=== PATIENT | male | born 1975 | race Caucasian/White ===

== ENCOUNTER 2023-08-29 22:41 | Emergency (ER) | payer SELFPAY ==
[2023-08-29 22:44] VITALS: BP 117/71; PULSE 62; RESP 20; TEMP 36.4; O2SAT 100
== END 2023-08-29 23:53 | disposition left against medical advice (07) ==
LOC: ANHED 23:47
PROVIDERS: PCP Physician Assistant
DX: S61.210A Laceration without foreign body of right index finger without damage to nail, initial encounter (principal); W45.8XXA Other foreign body or object entering through skin, initial encounter
CPT/HCPCS: 99199

== ENCOUNTER 2023-08-30 10:15 | Emergency (ER) | payer MEDICAID, SELFPAY ==
--- NOTE | ~2023-08-30 | XR_ITS ---
EXAMINATION: XR finger 2nd RT min 2V DATE: 08/30/2023 10:35 INDICATION: Right hand second digit injury. TECHNIQUE: 4 views of right hand second digit were obtained. COMPARISON: None. FINDINGS: There is a laceration of distal second digit. There is an oblique fracture of tuft of secon d distal phalanx. The distal fracture fragment demonstrates 2 mm palmar displacement. Joint spaces ar e normal. IMPRESSION: 1. Oblique fracture of tuft of second distal phalanx. Reviewed, dictated and finalized at location E.
--- NOTE | 2023-08-30 10:20 | ED.EXTPRO ---
HPI - Extremity Problem General Chief complaint: Wound/Laceration Stated complaint: Pointer Finger RT Hand Injury Time Seen by Provider: 08/30/23 10:18 Source: patient Mode of arrival: ambulatory Limitations: no limitations History of Present Illness HPI Narrative: Timothy is a 48-year-old male patient presenting to the clinic today with complaints of a right 2nd finger injury. He reports yesterday around 4:00 p.m. he injured his finger. States he crushed it with a some tire equipment. Has a laceration to the distal tip of the finger. Went to the ER yesterday and had 30 people in front of him to be seen and he did not want to wait so he left. Tetanus shot is up-to-date. Pain is currently 0/10 Related Data Allergies Allergy/AdvReac Type Severity Reaction Status Date / Time No Known Allergies Allergy Verified 08/29/23 22:47 Review of Systems Review of Systems: Pertinent positives per HPI. Patient denies any fever, chills, rash, headache, visual changes, dizziness, cough, runny nose, sore throat, shortness of breath, chest pain, palpitations, nausea, vomiting, diarrhea, constipation, abdominal pain, or any urinary issues. A[facility] Family History Family History Mother Family history of malignant neoplasm of gastrointestinal tract Social History Social History Smoking status: Former smoker Second hand tobacco smoke exposure: No Smoking end date: 10/31/13 Alcohol intake: current Lack of Transportation: No Lack of Food: Never True Current Housing: I Have Housing Concerned About Future Housing: No Difficulty Paying Gas/Electric Bills: No Difficulty Paying for Meds: No Currently Unemployed: No Education: High School Diploma/GED Difficulty w/ Childcare or Family Care: No Comments At the time of my signature, I reviewed and agree with the nursing past medical, surgical, social, and family history. There is no relevant family history pertinent to the patient complaint. Exam Narrative: General: Well-developed, well nourished, in no apparent distress Head: Normocephalic, atraumatic. Cardio: Regular rate and rhythm, s1 and s2 normal, no murmur appreciated. Resp: Clear to auscultation bilaterally, no rhonchi, rales, wheezing or rubs. Musculoskeletal: No deformity, non-tender to palpation, approximate 1 cm laceration to the distal tip of the right 2nd phalanx, no redness, swelling, or drainage noted, bleeding controlled, grossly normal range of motion, muscle strength strong and equal, peripheral pulse strong, no edema, no cyanosis, normal gait and station Course Course Emergency Course: Portions of this record may have been created with voice recognition software. Level of Care: Express Care Visit Vital Signs Vital signs: Vital signs reviewed Procedures Laceration Laceration 1: Date: 08/30/23 Time: 11:15 Site: hand (right second finger) Side (If applicable): right Size (cm): 1 Description: linear, flap and contaminated Depth: simple, single layer Local Anesthetic: lidocaine 1% Amount of anesthesia used (mL): 1 Pre-repair: wound explored and irrigated extensively ====== Skin Level ====== Skin layer closed with: nylon Size (cm): 4-0 Number of sutures: 4 Technique: simple, interrupted ====== Subcutaneous Layer ====== ====== Muscle Layer ====== ====== Tendon Layer ====== Dressing: Verbal consent obtained for laceration repair. Risk and benefits explained and patient voiced understanding. Area was cleansed with Betadine and irrigated using 500 mL of normal saline. A 25 gauge needle was then used to instill (1) ml of 1% lidocaine without epi into the wound edges. Area was prepped and draped using sterile technique. A 4-0 suture on a p needle was
[2023-08-30 10:28] VITALS: BP 148/75; PULSE 78; RESP 18; TEMP 36.9; O2SAT 100
[2023-08-30 10:29] VITALS: BP 148/75; PULSE 78; RESP 18; TEMP 36.9; O2SAT 100
== END 2023-08-30 11:40 | disposition home or self-care (01) ==
PROVIDERS: Emergency Provider Nurse Practitioner Family; PCP Physician Assistant
DX: S62.630B Displaced fracture of distal phalanx of right index finger, initial encounter for open fracture (principal); X58.XXXA Exposure to other specified factors, initial encounter; Z87.891 Personal history of nicotine dependence
CPT/HCPCS: 12001; 29130; 73140; 99213; 99214; G0463